=== PATIENT | male | born 1980 | race Caucasian/White ===

== ENCOUNTER 2017-01-22 12:44 | Emergency (ER) | payer OTHER ==
[~2017-01-22] VITALS: Ht 180.3 cm; Wt 108.0 kg
[2017-01-22 12:46] VITALS: BP 164/96; PULSE 110; RESP 16; O2SAT 100
[2017-01-22 13:12] VITALS: BP 15/84; PULSE 101; RESP 17; O2SAT 100
[2017-01-22 13:32] LABS: BASOPHILS % (AUTO) 0.4 % (0-3); EOSINOPHILS % (AUTO) 2.4 % (0-5); MONOCYTES % (AUTO) 8.4 % (4-12); Mean Corpuscular Hemoglobin 30.8 pg (27.0-35.0); Mean Corpuscular Volume 88.5 fL (81-100); Platelet Count 221 bil/L (150-400)
--- NOTE | 2017-01-22 13:32 | DRSVH ---
PROCEDURE: X-RAY CHEST ONE VIEW, PORTABLE ([id number]) INDICATIONS: cp TECHNIQUE: One view of the chest was acquired. COMPARISON: None. FINDINGS: Surgical changes and devices: None. Lungs and pleura: No pleural effusions or pneumothorax. Lungs are clear. Mediastinum: Mediastinal contours appear normal. Heart size is normal. Bones and chest wall: No suspicious bony lesions. Overlying soft tissues appear unremarkable. IMPRESSION: Reduced inspiratory volume, source of chest pain is not seen. Dictated by: Wai Torres M.D. on 01/22/2017 at 13:31 Approved by: Wai Torres M.D. on 01/22/2017 at 13:31
[2017-01-22 14:04] VITALS: BP 144/84; PULSE 103; RESP 18; O2SAT 97
[2017-01-22 14:04] LABS: TROPONIN T < 0.010 ug/L (0.0-0.011)
[2017-01-22 14:14] LABS: Magnesium 1.9 mg/dL (1.6-2.6)
--- NOTE | 2017-01-22 14:18 | ED.REPORT ---
HPI-Chest Pain Under 40 Date of Service Jan 22, 2017 ED Provider: History of Present Illness: 36-year-old male here for chest pain. Sharp knifelike chest pain that sternal and radiates to his back. Onset today when he was walking right after eating lunch. He felt short of breath with this pain. And he does get waves of nausea. The pain in his chest waxes and wanes. In the past few months he has had intermittent bouts of chest pain, never this bad. He has also been having some confusion, lethargy and head pains over the last few months. These will come and go. They generally related to hypoglycemia, they have checked his blood sugar at some of these instances and has been low. His never been seen for these symptoms in the past. He has had recent weight gain. He does have a family history of blood clots and heart attacks. Nonsmoker. Denies drug use. No recent travel. No personal history of recent travel or clots. Nursing Notes Stated Complaint: HEART PAIN Chief Complaint: Chest Pain Nursing Notes Reviewed: Yes Allergies: Coded Allergies: No Known Allergies (Unverified , 01/22/17) General Time Seen by MD: 14:06 Chief Complaint Chest pain, Chest pressure, Nausea, Shortness of breath Hx Obtained From: Patient, Spouse Arrived By: Walk-in Sudden in Onset?: Yes Onset Occurred: Just prior to arrival Symptom Duration: Waxes and wanes Location: : Substernal Quality: Painful, Sharp, Stabbing Radiation: : Back Severity: Current: Pain level 5 out of 10 Severity: Maximum: Pain level 8 out of 10 Recent Healthcare: No recent doctor visit Similar Sx Previous: Yes Risk Factors Risk Notes: Overweight Past Medical History Past Medical History Notes: Hypertension, low potassium Review of Systems Constitutional: Denies: Chills, Fatigue, Fever Respiratory: Reports: Dyspnea on exertion, Shortness of breath, Denies: Non-productive cough Cardiovascular: Reports: Chest pain, Denies: Edema, Palpitations, Syncope GI: Reports: Nausea, Denies: Abdominal pain, Vomiting Musculoskeletal: Reports: Back pain Neurologic: Reports: Confusion Complete sys rev & neg: except as marked. Physical Exam Initial Vital Signs Vital Signs (First) Date Time Temp Pulse Resp B/P Pulse Ox O2 Delivery O2 Flow Rate FiO2 01/22/17 12:46 36.8 110 16 164/96 100 Room Air Initial VS: Reviewed, Vital signs normal General/Constitutional: Awake, Alert, Well appearing Respiratory / Chest: Breath sounds NL, Breath sounds = bilat, No respiratory distress, No rales, No rhonchi, No wheezing, No chest tenderness BP 149/83 heart rate 102. BP right arm 139/90 heart rate 101. chest nontender. Cardiovascular: Heart rate NL, Regular rhythm, Heart sounds NL, No murmurs, Peripheral circulation NL, Pulses = bilaterally, No gross BP differential Neck: Supple, Full range of motion, No swelling, Non-tender, No masses, No JVD Abdomen: Atraumatic, Soft, Non-tender, No guarding, No rebound, BS normoactive , No distention, No palpable mass, No pulsatile mass Skin: Color NL, Warm, Dry, Turgor NL Neurologic: Oriented X3, Speech NL, No motor deficits, No sensory deficits Psychiatric: Affect NL, Mood NL, Thought content NL Head / Eyes: Atraumatic, Normocephalic, PERRL, EOMI, No nystagmus ENT: Atraumatic, Airway patent, Mucous membranes moist, Pharynx NL, No peritonsillar abscess, No pooling of secretions, No trismus Interpretation & Diagnostics Interpretation & Diagnostics: [place] [address] Patient Name: ARTI ALBA MR#: [id number] Location: [facility] – [place] Ordering Phys: JACQUELINE BLACK MD Date of Service: 01/22/17 1254 PROCEDURE: X-RAY CHEST ONE VIEW, PORTABLE ([id number]) INDICATIONS: cp TECHNIQUE: One view of the chest was acquired. COMPARISON: None. FINDINGS: Surgical changes and devices: None. Lungs and pleura: No pleural effusions or pneumothorax. Lungs are clear. Mediastinum: Mediastinal contours appear normal. Heart size is normal. Bones and chest wall: No suspicious bony lesions. Overlying soft tissues appear unremarkable. IMPRESSION: Reduced inspiratory volume, source of chest pain is not seen. Lab Results Interpretation Result Diagram: 01/22/17 1300 01/22/17 1300 Test 01/22/17 13:00 White Blood Count 5.0th/mm3 (3.8-10.1) Red Blood Count 4.94mil/mm3 (4.40-5.80) Hemoglobin 15.2g/dL (13.8-17.2) Hematocrit 43.7% (41.0-50.0) Mean Corpuscular Volume 88.5fL (81-100) Mean Corpuscular Hemoglobin 30.8pg (27.0-35.0) Mean Corpuscular Hemoglobin Concent 34.8% (32.0-37.0) Red Cell Distribution Width 12.7% (12.3-15.4) Platelet Count 221bil/L (150-400) Neutrophils (%) (Auto) 62.0% (40-74) Lymphocytes (%) (Auto) 26.6% (14-46) Monocytes (%) (Auto) 8.4% (4-12) Eosinophils (%) (Auto) 2.4% (0-5) Basophils (%) (Auto) 0.4% (0-3) D-Dimer < 0.50mg/L FEU (<0.50) Sodium Level 137mEq/L (134-144) Potassium Level 4.2mEq/L (3.5-5.2) Chloride Level 99mEq/L (97-108) Carbon Dioxide Level 23mmol/L (18-29) Blood Urea Nitrogen 19mg/dL (6-20) Creatinine 0.78mg/dL (0.76-1.27) Estimat Glomerular Filtration Rate 120mL/min (>59) Glucose Level 129mg/dL (60-99) Calcium Level 9.5mg/dL (8.5-10.1) Magnesium Level 1.9mg/dL (1.6-2.6) Total Bilirubin 0.3mg/dL (0.0-1.2) Aspartate Amino Transf (AST/SGOT) 21U/L (0-50) Alanine Aminotransferase (ALT/SGPT) 18U/L (0-44) Alkaline Phosphatase 76U/L (25-150) Troponin T < 0.010ug/L (0.0-0.011) Total Protein 7.4g/dL (6.4-8.4) Albumin 4.3g/dL (3.4-5.0) Lipase 48U/L (13-60) Hold Ramsey Top Tube Received (Received) Re-Eval/Medical Decision Med Decision/Clinical Course Dr. Ayo Greco evaluated patient as well. Repeat troponin ordered if normal will send home to follow up with PCP. Labs unremarkable thus far. Patient's pain is resolved. 1800- patient declined second troponin wants to leave. Discussed risk of not doing a full evaluation and doing significant component. Patient accepted that risk. Would still like to go home. Discussed differentials being anxiety/panic, acid reflux, cardiac symptoms including heart attack. He will follow this p.m. Tuesday. Discharge & Departure Shift Change Sign-Out Laboratory Evaluation: Lab evaluation discussed Imaging Studies: Imaging discussed Procedures: Results discussed Primary Impression: Chest pain Chest pain type: unspecified Qualified Code: R07.9 - Chest pain, unspecified Discharge Condition All VS Reviewed: Yes Condition: Stable Patient Instructions: Chest Pain (ED) Additional Instructions: Return immediately to emergency room if further chest pain, shortness of breath , altered level of consciousness. Otherwise follow-up with her PCP on Tuesday for further care. Think about acid reflux and treat with [id number] acid reducers as you see fit. You may pick these up at the pharmacy. Thing about panic and anxiety as a cause for these symptoms as well. Recommended to get a stress test in the outpatient setting as well. EDSupervising Provider for APC: Darwin Stephenson MD Attending Statement I discussed patient with YENNY Denis. I evaluated the patient independently and agree with plan as above. In brief 36-year-old male presenting with chest pain rating to his back earlier today which resolved prior to my evaluation. Vital signs are stable. Bilateral upper extremity blood pressures were normal. D-dimer was negative. Troponins were negative 2. Chest x-ray was clear. No EKG changes. His pain resolved therefore difficult to assess for musculoskeletal. Possibly anxiety. Patient may benefit from an outpatient stress test. He has no cardiac risk factors identified. I discussed with patient and he will follow up with his primary doctor on Tuesday for possible outpatient stress test and management of anxiety, reevaluation and further workup. Return precautions given if any chest pain difficulty breathing lightheadedness weakness shortness of breath fevers or any other new or worsening symptoms. copies to: Darwin Stephenson MD, Linnea K ARNP Jan 22, 2017 14:18 Darwin Stephenson MD Jan 22, 2017 19:44
[2017-01-22 15:39] VITALS: BP 139/92; PULSE 100; RESP 20; O2SAT 97
[2017-01-22 17:37] VITALS: BP 129/90; PULSE 88; RESP 16; O2SAT 100
== END 2017-01-22 18:13 | disposition home or self-care (01) ==
LOC: SED 12:44
DX: R07.9 Chest pain, unspecified (principal); R11.0 Nausea; I10 Essential (primary) hypertension